=== PATIENT | male | born 1945 | race Caucasian/White ===

== ENCOUNTER 2017-12-29 08:30 | Emergency (ER) | payer OTHER ==
[~2017-12-29] VITALS: Wt 93.0 kg
--- NOTE | ~2017-12-29 | EKG ---
[place], [place] ELECTROCARDIOGRAM REPORT NAME: HEMA LOYA UNIT #: [id number] ROOM: DOCTOR: MECHE PARSON MD BIRTHDATE: [birth year] DOS: 12/29/2017 TIME: 0922 hours. FINDINGS: 1. Normal sinus rhythm at 75 beats per minute ____ heart block. 2. An old anterior wall myocardial infarction. 3. Also consider an old inferior wall myocardial infarction. 4. An abnormal ECG. 5. No previous tracing is available for comparison. MECHE PARSON MD CM:EKGRPT:ELECTROCARDIOGRAM REPORT [id number] MECHE PARSON MD
[2017-12-29 09:29] LABS: BASO % 0.4 % (0.0-1.0); EOS # 0.1 10*3/uL (0.0-0.4); EOS % 1.2 % (1.0-4.0); HEMOGLOBIN 14.2 g/dl (14.0-18.0); LYMPH # 2.2 10*3/uL (1.3-4.4); MEAN CELL VOLUME 87.7 fl (80.0-94.0); MEAN CORPUSCULAR HGB 27.7 pg (27.0-31.0); MEAN CORPUSCULAR HGB CONC 31.6 g/dl (33.0-37.0); MEAN PLATELET VOLUME 10.9 fl (9.6-12.3); MONO # 0.6 10*3/uL (0.1-1.0); MONO % 8.4 % (3.0-9.0); NEUT # 4.6 10*3/uL (2.3-7.9); NEUT % 60.7 % (47.0-73.0); PLATELET COUNT AUTOMATED 189 10*3/uL (130-400); RED BLOOD COUNT 5.13 10*6/uL (4.50-5.90); RED CELL DISTRI WIDTH 12.8 % (0-14.5); WHITE BLOOD COUNT 7.5 10*3/uL (4.8-10.8)
[2017-12-29 09:37] LABS: ACT PARTIAL THROMBO TIME 27.8 SECONDS (20.8-31.5)
[2017-12-29 09:45] LABS: ALKALINE PHOSPHATASE 50 U/L (45-117); BUN 16 mg/dl (7-24); CHLORIDE 103 mmol/L (98-107); CREATININE 1.42 mg/dL (0.70-1.30); LIPASE 162 U/L (73-393); POTASSIUM 4.2 mmol/L (3.5-5.1); SGOT/AST 15 IU/L (3-35); SGPT/ALT 15 U/L (12-78); SODIUM 140 mmol/L (136-145); TOTAL PROTEIN 8.3 gm/dL (6.4-8.2)
[2017-12-29 09:49] LABS: TROPONIN I < 0.015 ng/ml (<0.045)
[2017-12-29] MEDS ORDERED: DOXYCYCLINE100 M3 PO (10:51)
[2017-12-29] MEDS ORDERED: PREDNISONE50 MG PO (10:51)
[2017-12-29] MEDS ORDERED: NORCO 5-325 TA1 EACH PO (10:51)
== END 2017-12-29 11:00 | disposition home or self-care (01) ==
LOC: ED 08:30
PROVIDERS: Emergency Medicine
DX: L03.116 Cellulitis of left lower limb (principal)

== ENCOUNTER 2022-09-12 12:11 | Emergency (ER) | payer MEDICARE ==
[~2022-09-12] VITALS: Ht 182.8 cm; Wt 93.0 kg
[~2022-09-12 12:11] MED LIST: DOXYCYCLINE100 M3 PO; NORCO 5-325 TA1 EACH PO; PREDNISONE50 MG PO
[2022-09-12] MEDS ORDERED: PREDNISONE50 MG PO (13:12)
== END 2022-09-12 13:28 | disposition home or self-care (01) ==
LOC: ED 12:11
DX: M10.9 Gout, unspecified (principal); I10 Essential (primary) hypertension